=== PATIENT | female | born 1995 | race Two or more races ===

== ENCOUNTER 2024-10-15 17:49 | Emergency (ER) | payer OTHER, SELFPAY ==
[2024-10-15 18:29] VITALS: BP 126/71; PULSE 74; RESP 16; TEMP 36.9; O2SAT 99; BMI 24.7
--- NOTE | 2024-10-15 18:37 | XR_ITS ---
Examination: CT brain head without contrast. 2-D sagittal coronal reconstructions Date and time of exam:October 15, 2024 1841 hrs. Indications: Onset dizziness episodes today CTDI: vol (mGy):50.6 DLP: (mGycm):1038 Technique: Multiple CT axial sections of the brain have been obtained, 5 mm slice thickness. Contrast has not been administered. 2-D sagittal, coronal reconstructions have been obtained Low dose protocols were performed. One or more of the following dose reduction techniques were used; automated exposure control, adjustment of the mA and/or KV according to patient size, use of iterative reconstruction technique. Findings: No significant ventricular enlargement. Intra-axial or extra-axial hemorrhage density is not seen. No mass effect or midline shift Basal cisterns are not remarkable. Fourth ventricle is midline. Cranial vault intact. Impression: Negative for acute hemorrhage, mass effect or midline shift [id number] chronic right mastoiditis Advise clinical correlation and follow-up accordingly
--- NOTE | 2024-10-15 18:37 | PD.EDRME ---
Rapid Medical Screening Exam E Arrival date/time: 10/15/24 17:49 29-year-old female presents emergency department complaining of intermittent dizziness and blurry vision for 10 days. Chief Complaint: Dizziness Time Seen by Provider: 10/15/24 18:06 Vital signs: Vital Signs Temperature 98.5 F 10/15/24 18:29 Pulse Rate 74 10/15/24 18:29 Respiratory Rate 16 10/15/24 18:29 Blood Pressure 126/71 10/15/24 18:29 Pulse Oximetry (%) 99 10/15/24 18:29 Oxygen Delivery Method Room Air 10/15/24 18:29 Vital signs reviewed by provider: Yes
[2024-10-15] MEDS: MECLIZINE HCL 25 MG TABLET PO (18:42)
--- NOTE | 2024-10-15 19:28 | PD.EDDIZZY ---
ED Dizzyness RME/HPI General Chief Complaint: Dizziness Stated Complaint: dizziness, blurred vision x 10 days Time Seen by Provider: 10/15/24 18:06 Source: patient Arrival date/time: 10/15/24 17:49 29-year-old female presents emergency department complaining of intermittent dizziness and blurry vision for 10 days. Patient denies any fever, chills, chest chest pain, cough, shortness of breath, nausea vomiting, or any other associated symptom. Mode of arrival: ambulatory Limitations: no limitations RME / HPI RME / HPI Narrative: 10/15/24 17:49 29-year-old female presents emergency department complaining of intermittent dizziness and blurry vision for 10 days. Related Data Home Medications ?Medication ?Instructions ?Recorded ?Confirmed vits no.[id number] fum 1 tab PO QDAY 09/22/18 09/22/18 27 mg iron-folic acid 800 mcg tablet ( Vitamin) Previous Rx's ?Medication ?Instructions ?Recorded hydrocodone 5 mg-acetaminophen 300 1 tab PO QID PRN pain #30 tabs 09/28/18 mg tablet (Vicodin) ibuprofen 800 mg tablet 800 mg PO BID pain #30 tabs 09/28/18 magnesium hydroxide 400 mg/5 mL 400 mg (5 mL) PO QDAY PRN stomach 09/28/18 oral suspension (Milk of Magnesia) upset #355 mL simethicone 80 mg chewable tablet 80 mg PO QDAY #30 tabs 09/28/18 ibuprofen 600 mg tablet 600 mg PO Q8H PRN pain #20 tabs 10/15/24 meclizine 25 mg tablet 25 mg PO QDAY PRN dizziness #10 10/15/24 tabs Allergies Allergy/AdvReac Type Severity Reaction Status Date / Time No Known Allergies Allergy Verified 10/15/24 17:52 Review of Systems Review of Systems Systems Reviewed: All systems reviewed, normal except as documented Constitutional Constitutional: Reports system reviewed and no additional complaints, except as documented, Denies body ache(s), Denies chills and Denies fever(s) Eyes Eyes: Reports system reviewed and no additional complaints, except as documented, Reports blurry vision and Denies change in vision ENT Ears, Nose, Mouth, and Throat: Reports system reviewed and no additional complaints, except as documented, Denies disequilibrium, Reports dizziness, Denies sore throat and Reports vertigo Cardiovascular Cardiovascular: Reports system reviewed and no additional complaints, except as documented, Denies chest pain and Denies dyspnea Respiratory Respiratory: Reports system reviewed and no additional complaints, except as documented, Denies chest congestion, Denies cough and Denies dyspnea Gastrointestinal Gastrointestinal: Reports system reviewed and no additional complaints, except as documented, Denies abdominal pain, Denies nausea and Denies vomiting Musculoskeletal Musculoskeletal: Reports system reviewed and no additional complaints, except as documented, Denies abnormal gait and Denies arthralgias Integumentary/Breasts Skin/Breast: Reports system reviewed and no additional complaints, except as documented, Denies erythema, Denies rash and Denies wounds Neurologic Neurologic: Reports system reviewed and no additional complaints, except as documented, Denies abnormal gait, Denies disequilibrium, Reports dizziness and Reports vertigo Past Medical History Past Medical History NEUROLOGIC: Negative Neurological Disorders or Seizures CARDIAC: Negative Cardiac Disorders or Congestive Heart Failure RESPIRATORY: Negative Chronic Obstructive Pulmonary Disease (COPD) GASTROINTESTINAL: Negative Gastrointestinal Disorders, Hepatitis or Colorectal Cancer GENITOURINARY: Negative Genitourinary Disorders, Renal Disease or Prostate Cancer REPRODUCTIVE: Negative Breast Cancer or Testicular Cancer MUSCULOSKELETAL: Negative Musculoskeletal Disorders or Bone Cancer ENDOCRINE: Positive Endocrine Disorders; Negative Diabetes Mellitus Type 1 or Diabetes Mellitus Type 2 HEMATOLOGIC: Negative Blood Disorders OTHER HISTORY: Negative Hospitalization, Autoimmune Disease, Down Syndrome, Developmental Delay, Shingles, Falls, Blood Transfusions, Blood Transfusion Reaction, Anesthesia Reactions, Organ Transplant, Chemotherapy, Radiation Therapy, Hyperbaric Therapy, MRSA, VRSA, Vancomycin-Resistant Enterococci, Human Immunodeficiency Virus (HIV), Chicken Pox, Measles, Mumps, Rubella (Kinyarwanda Measles), Pertussis, Clostridium Difficile, Breast Cancer, Cervical Cancer, Colorectal Cancer, Lung Cancer, Ovarian Cancer, Prostate Cancer or Testicular Cancer Family History FAMILY HISTORY: Negative Family Psychiatric Problems, Family Respiratory Disorders, Family Cardiac Disorders, Family Gastrointestinal Problems, Family Cancer, Family Surgery or Family Anesthesia Reaction Surgical History SURGICAL: Negative Section or Organ Transplant Social History SMOKING STATUS: Never smoker ED Exam General Limitations: Present no limitations General appearance: Present alert and in no apparent distress Head Head exam: Present atraumatic Eye Eye exam: Present normal appearance, PERRL and EOMI ENT ENT exam: Present normal exam, normal oropharynx and mucous membranes moist Neck Neck exam: Present normal inspection, full ROM and trachea midline Chest Chest inspection: Present normal inspection and symmetric chest wall rise Respiratory Respiratory exam: Present normal lung sounds bilaterally Cardiovascular Cardiovascular exam: Present regular rate, normal rhythm and normal heart sounds Abdominal Exam Abdominal exam: Present soft and normal bowel sounds Extremities Exam Extremities exam: Present normal inspection and full ROM Back Exam Back exam: Present normal inspection and full ROM Neurological Exam Neurological exam: Present alert, oriented X3 and CN II-XII intact Psychiatric Psychiatric exam: Present normal affect and normal mood Skin Skin exam: Present warm, dry, intact and normal color Course Quality Measures none Orders Category Date Time Status CT head/brain wo con Stat Exams 10/15/24 18:37 Completed Ibuprofen Tab [Motrin Tab] Med 10/15/24 19:48 Discontinued 600 mg PO X1 ONE Meclizine HCl [Antivert] Med 10/15/24 18:37 Discontinued 25 mg PO X1 ONE Vital Signs Vital signs: Vital Signs Temperature 98.5 F 10/15/24 18:29 Pulse Rate 74 10/15/24 18:29 Respiratory Rate 16 10/15/24 18:29 Blood Pressure 126/71 10/15/24 18:29 Pulse Oximetry (%) 99 10/15/24 18:29 Oxygen Delivery Method Room Air 10/15/24 18:29 99% room air within normal limits Dizziness MDM Narrative MDM Narrative:: 29-year-old female past medical history of gestational diabetes presents emergency department complaining of intermittent dizziness and blurry vision for 10 days. Patient denies any fever, chills, chest chest pain, cough, shortness of breath, nausea vomiting, or any other associated symptom. CT scan findings Negative for acute hemorrhage, mass effect or midline shift, [id number] chronic right mastoiditis. Patient appears nontoxic and is hemodynamically stable. Patient reported improvement in symptoms after medication. Patient discharged instructed to follow-up with primary care provider and request referral to ENT if symptoms persist. Patient data External records reviewed:: [facility] previous records Clinical information provided by:: patient Social determinants that could affect healthcare access:: none Patient has the following chronic illnesses:: See chart How is presenting disease/condition affected by chronic disease/condition?: uneffected by Evaluation data The following diagnostics were reviewed and interpreted by me:: radiology exam(s) Lab and/or radiology exams considered but not ordered:: Ordered Interpretation Summary: Interpreted by me Medications / Prescriptions Medications or Prescriptions considered but not ordered:: Ordered Medication administrations:: Medication Administration History Discontinued Medications Ibuprofen (Ibuprofen Tab 600 Mg Tablet) 600 mg PO X1 ONE Stop: 10/15/24 19:49 Last Admin: 10/15/24 19:51 Dose: 600 mg Documented By: OA Meclizine HCl (Meclizine Hcl 25 Mg Tablet) 25 mg PO X1 ONE Stop: 10/15/24 18:38 Last Admin: 10/15/24 18:42 Dose: 25 mg Documented By: OA Given Consultations Consultation(s) initiated? (list below): No Diagnosis Dizziness Differential Diagnosis: benign paroxysmal positional vertigo, orthostatic hypotension, cerebrovascular accident, acute vestibular neuronitis and transient cerebral ischemia Most likely diagnosis given after review of the tests above:: Chronic mastoiditis Admission Indicated Admission indicated?: not indicated Admission Request Was there a request for admission?: No Disposition Plan Disposition Plan: Discharge Discharge Attestation Discharge Attestation: The patient and all family members were given an opportunity to ask questions and understood the discharge instructions. Discharge instructions specifically effects, indications for sooner follow up or return to the emergency department, and the expected course of current diagnosis. Patient condition: Stable Discharge Plan Plan Patient Disposition: HOME (Self Care) Disposition Comment: Stable Prescriptions/Referrals Prescriptions/Med Rec: New meclizine 25 mg tablet 25 mg PO QDAY PRN (Reason: dizziness) Qty: 10 0RF ibuprofen 600 mg tablet 600 mg PO Q8H PRN (Reason: pain) Qty: 20 0RF No Action vit no.[id number] [ Vitamin] 27 mg iron- 800 mcg Tablet 1 tab PO QDAY hydrocodone-acetaminophen [Vicodin] 5-300 mg tablet 1 tab PO QID MDD 15 PRN (Reason: pain) Qty: 30 0RF magnesium hydroxide [Milk of Magnesia] 400 mg/5 mL suspension 400 mg PO QDAY PRN (Reason: stomach upset) Qty: 355 0RF ibuprofen 800 mg tablet 800 mg PO BID Qty: 30 0RF simethicone 80 mg tablet,chewable 80 mg PO QDAY Qty: 30 0RF Referrals: No Primary/Family,Physician [Primary Care Provider] - In 1 week Problem List Clinical Impression: Chronic mastoiditis Patient/Caregiver Discharge Instructions Discharge Activity: activity as tolerated Education Materials: Common Middle Ear Problems, Anatomy of the Ear Additional Instructions: Drink plenty of fluids. Take ibuprofen or Tylenol as needed for pain. Take meclizine as needed for dizziness. Follow-up with primary care provider in 2 to 3 days. Return to emergency department for any worsening symptoms or as needed. Print Language: Sami Stand Alone Forms: Desi Award Info., Patient Portal Info Letter PA/CORRECTION OFFICER SUPERVISOR Supervising Physician PA/CORRECTION OFFICER SUPERVISOR Supervising Physician: Dr. Betancourt
[2024-10-15] MEDS: IBUPROFEN TAB 600 MG TABLET PO (19:51)
== END 2024-10-15 20:16 | disposition home or self-care (01) ==
PROVIDERS: Emergency Provider Emergency Medicine
DX: H70.11 Chronic mastoiditis, right ear (principal)
CPT/HCPCS: 70450; 99284; A9270